=== PATIENT | male | born 1990 | race Caucasian/White ===

== ENCOUNTER 2020-03-07 15:14 | Emergency (ER) | payer OTHER ==
[~2020-03-07] VITALS: Ht 162.6 cm; Wt 52.4 kg
[2020-03-07] MEDS ORDERED: SOMA250T PO (15:22)
[2020-03-07] MEDS ORDERED: ACET-683 PO (15:22)
[2020-03-07] MEDS ORDERED: KETOROLAC 30 MG/ML 1ML VIAL IM ONE (17:30)
[2020-03-07] MEDS ORDERED: LIDOCAINE 5% (LIDODERM) PATCH TD ONE (17:30)
[2020-03-07 17:37] VITALS: BP 135/76
[2020-03-07] MEDS ORDERED: **NOTE PATIENT COMMENT** MISC XX SCH (21:00)
--- NOTE | 2020-03-08 10:20 | REP ---
CT LUMBAR SPINE WITHOUT CONTRAST: HISTORY: Moderate vertebral tenderness after a squatting injury. Audible snap. No comparison imaging. 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 Lumbar vertebral body heights are preserved. Alignment is normal. No fracture or collapse is seen. No sacral fracture is observed. No transverse process or spinous process fracture is seen. No paravertebral soft tissue edema is appreciated. IMPRESSION: Normal CT study of the lumbar spine. No traumatic abnormality noted. Electronically Signed by Anthony Wilson MD 03/09/2020 07:41 P
--- NOTE | 2020-03-08 10:22 | REP ---
CT THORACIC SPINE WITHOUT CONTRAST: HISTORY: Moderate vertebral tenderness after squatting injury. Audible snap. FINDINGS: Thoracic vertebral body heights are preserved. Alignment is normal. No spinous process or other posterior element fracture is appreciated. Posterior rib cage appears intact as visualized. The visualized lung casillas are clear. No abnormalities noted in the mediastinum. Disc spaces are maintained. No paravertebral or intraspinal hematoma is appreciated. There is a minimal levoconvex curve on coronal multiplanar re-formation images. IMPRESSION: Minimal levoconvex curvature. Otherwise negative. No traumatic abnormality seen. Electronically Signed by Anthony Wilson MD 03/09/2020 07:41 P
== END 2020-03-07 18:03 | disposition home or self-care (01) ==
LOC: M ED 15:14
DX: M54.5 Low back pain (principal); M41.9 Scoliosis, unspecified; F17.210 Nicotine dependence, cigarettes, uncomplicated; Z79.899 Other long term (current) drug therapy
CPT/HCPCS: 72128; 72131; 99283; J1885